=== PATIENT | male | born 1960 | race Caucasian/White ===

== ENCOUNTER 2017-02-14 07:26 | Day surgery (SDC) | payer OTHER ==
[~2017-02-14 07:26] MED LIST: CEFAZOLIN SODIUM 2 GRAM PREMIX 100 ML IV ONE; CEFAZOLIN SODIUM 2 GRAM PREMIX 100 ML IV PRN; IV START KIT ONE; LACTATED RINGERS 1,000 ML ONE
[2017-02-14] MEDS ORDERED: OPIUM/BELLADONNA ALKALOIDS 1 EACH SUP PR ONE (08:29)
[2017-02-14] MEDS ORDERED: BUPIVACAINE 0.75% SPINAL AMPUL 2 ML ONE (08:36)
[2017-02-14] MEDS ORDERED: SPINAL PROCEDURAL TRAY 1 EACH ONE (08:36)
[2017-02-14] MEDS ORDERED: FENTANYL 100 MCG/2 ML VIAL ONE (08:37)
[2017-02-14] MEDS ORDERED: MIDAZOLAM HCL 5 MG/5 ML VIAL ONE ×3 (08:37→09:44)
[2017-02-14] MEDS ORDERED: MEPERIDINE 25 MG/ML SYRINGE IV PRN (09:08)
[2017-02-14] MEDS ORDERED: LABETALOL HCL 5 MG/ML 20ML VIAL IV PRN (09:08)
[2017-02-14] MEDS ORDERED: ONDANSETRON 4 MG/2ML 2 ML VIAL IV PRN ×2 (09:08→12:26)
[2017-02-14] MEDS ORDERED: NALOXONE HCL 0.4 MG/ML VIAL IV PRN (09:08)
[2017-02-14] MEDS ORDERED: PROMETHAZINE HCL 25 MG/ML VIAL IM PRN (09:08)
[2017-02-14] MEDS ORDERED: ATROPINE SULFATE 0.4 MG/1 ML VIAL IV PRN (09:08)
[2017-02-14] MEDS ORDERED: MORPHINE SULFATE 4 MG/ML SYRINGE IV PRN ×2 (09:08→14:43)
[2017-02-14] MEDS ORDERED: LACTATED RINGERS 1,000 ML IV SCH (09:15)
[2017-02-14] MEDS ORDERED: LACTATED RINGERS 1,000 ML ONE (11:12)
[2017-02-14] MEDS ORDERED: HYDROCODONE/ACETAMINOPHEN 5/325MG TABLET PO PRN (12:26)
[2017-02-14] MEDS ORDERED: OPIUM/BELLADONNA ALKALOIDS 1 EACH SUP PR PRN (12:26)
[2017-02-14] MEDS ORDERED: MORPHINE SULFATE 2 MG/ML SYRINGE IV PRN (12:26)
[2017-02-14] MEDS ORDERED: MENTHOL/CETYLPYRD 1 EACH LOZENGE PO PRN (12:26)
[2017-02-14] MEDS ORDERED: BLISTEX LIPSTICK 1 EACH TP PRN (12:26)
[2017-02-14] MEDS ORDERED: BISACODYL 10 MG SUP PR PRN (12:26)
[2017-02-14 12:30] VITALS: BMI 29.4
[2017-02-14] MEDS ORDERED: SODIUM CHLORIDE 0.9% FLUSH 10 ML ONE (13:26)
--- NOTE | 2017-02-14 14:11 | OP ---
AMELIA MCDONALD [id number] DATE OF OPERATION: February 14, 2017 SURGEON: Kwadwo Sparks M.D. CIGAR BINDER: None. ANESTHESIA: Spinal. 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 POSTOPERATIVE DIAGNOSES: Bladder outlet obstruction due to prostate enlargement and primary bladder neck dysfunction, with known chronic urinary retention. PROCEDURE: TRANSURETHRAL RESECTION OF THE PROSTATE. SPECIMENS: Chips of prostatic tissue. INDICATIONS: The patient is a 56-year-old male with a long history of chronic urinary retention secondary to primary bladder neck dysfunction for which he underwent a bladder neck incision back in 2006 and now with obstructing prostatic tissue. He does have a history of recurring cystoprostatitis and has been noted to have an increasing large post void residual. Urodynamic studies demonstrated a "floppy" decompensated detrusor as expected with some mild pressure elevation when he does void at large volumes. He has developed in-filling of prostatic tissue since his previous bladder neck incision. FINDINGS: The anterior urethra appeared normal aside from a medium anular ring of stricture just outside the membranous urethra. The prostatic fossa was approximately 3.5 cm in length and obstructed by anterior greater than left, greater than right sided prostatic tissue. Mild bladder neck elevation. Ureteral orifices are normally disposed. Bladder wall has a distinct floppy bag appearance without any focal lesions. PROCEDURE: The patient was identified and brought to the operating room where spinal anesthetic was applied. Then he was placed in a dorsal lithotomy position. The genital region was prepared and draped sterilely. The distal urethra was calibrated with Mal sounds up to 30 Omani, and then a 28 O[place]i resectoscope sheath was introduced with the visual obturator. Findings are as reported above. Using saline as an irrigant and a bipolar loop cautery system, we began resection anteriorly, then worked down the lateral lobes and finally from the bladder neck out toward the verumontanum. Chips of tissue were removed through the resectoscope. Bleeding was controlled with cautery. When the fossa had been adequately resected, all chips removed, and bleeding sufficiently controlled, the resectoscope was withdrawn and 24 Omani catheter was placed and left to gravity drainage with 30 mL of water in its balloon. Three-way saline irrigation was established. Estimated blood loss less than 25 mL. Resection time approximately 30 minutes. No early complications. Patient tolerated the procedure well and was taken in stable condition to the post anesthesia room. cc: Kwadwo Sparks M.D. Sia Jones D.O.
[2017-02-14] MEDS ORDERED: MORPHINE SULFATE 10 MG/ML SYRINGE IV PRN (14:47)
[2017-02-14] MEDS: LISINOPRIL 20 MG TABLET PO SCH (15:45)
[2017-02-14] MEDS: HYDROCHLOROTHIAZIDE 25 MG TABLET PO SCH (15:45)
[2017-02-14] MEDS: PHENAZOPYRIDINE HCL 200 MG TABLET PO SCH ×2 (15:45→20:54)
[2017-02-14] MEDS ORDERED: SODIUM CHLORIDE 3 L IRRIG BAG 3,000 ML IR ONE ×2 (16:35→19:21)
[2017-02-14] MEDS ORDERED: HYDROCHLOROTHIAZIDE 25 MG TABLET PO ONE (18:21)
[2017-02-14] MEDS ORDERED: LISINOPRIL 20 MG TABLET PO ONE (18:21)
[2017-02-14] MEDS: SODIUM CHLORIDE 3,000 ML IRRIG.SOLN IR SCH ×4 (19:43→23:59)
[2017-02-14] MEDS: DOCUSATE SODIUM 250 MG CAPSULE PO SCH (20:54)
[2017-02-14] MEDS ORDERED: POLYETHYLENE GLYCOL 3350 17 G POWD.SUSP PO SCH (21:00)
[2017-02-15] MEDS: SODIUM CHLORIDE 3,000 ML IRRIG.SOLN IR SCH ×2 (02:49→05:52)
[2017-02-15 07:48] VITALS: BP 142/106
[2017-02-15] MEDS: DOCUSATE SODIUM 250 MG CAPSULE PO SCH (08:11)
[2017-02-15] MEDS: LISINOPRIL 20 MG TABLET PO SCH (08:12)
[2017-02-15] MEDS: PHENAZOPYRIDINE HCL 200 MG TABLET PO SCH (08:12)
[2017-02-15] MEDS ORDERED: FLU VACC 2016-17 (36MO-64Y)/PF 60 MCG/0.5 ML SYRINGE IM V ONE (09:00)
[2017-02-15] MEDS: HYDROCHLOROTHIAZIDE 25 MG TABLET PO SCH (09:39)
--- NOTE | 2017-02-16 10:54 | SURGPATH ---
[facility] [address] [place] [id number] Patient Name: AMELIA MCDONALD MR#: [id number] : 1960 Gender: M Specimen #: [id number] Collected: 02/14/2017 Received: 02/15/2017 Reported: 02/16/2017 Submitting Phys: VON BARGER Copy To Phys: [facility] GIL[facility]ERTO GALVAN Clinical History / Pre-Operative Diagnosis: BLADDER OUTLET OBSTRUCTION SECONDARY TO ENLARGED PROSTATE Specimen Source / Surgical Procedure Performed: PROSTATE CHIPS Interpretation: PROSTATE, TRANSURETHRAL RESECTION: - BENIGN GLANDULAR HYPERPLASIA Electronically Signed Out Que De La Cruz M.D. Gross Description: The specimen is received in a formalin filled container labeled with the patient's name and "prostate chips". An aggregate of rubbery stauffer tissue fragments is 6.0 x 5.5 x 1.3 cm and 8 g. Totally embedded in cassettes A-H. Radha Kenyon Microscopic Description: The sections show multiple fragments of benign prostatic tissue with areas of glandular hyperplasia. There is no atypia and no features of malignancy. 1: 91096 N40.0
== END 2017-02-15 10:10 | disposition home or self-care (01) ==
LOC: SDC 07:26 → MS 14:23 → SDC 02-15 10:10
PROVIDERS: ATTEND Urology
PROC: 0VT08ZZ Resection of Prostate, Via Natural or Artificial Opening Endoscopic (ICD-10-PCS; principal; 2017-02-14)
DX: N40.1 Benign prostatic hyperplasia with lower urinary tract symptoms (principal); N13.8 Other obstructive and reflux uropathy; R33.8 Other retention of urine; I48.91 Unspecified atrial fibrillation; Z87.891 Personal history of nicotine dependence; N31.8 Other neuromuscular dysfunction of bladder
CPT/HCPCS: 52601; A9270 ×12; J3010; J2250 ×3; J7120 ×2; J0690